=== PATIENT | female | born 1965 | race Caucasian/White ===

== ENCOUNTER 2022-02-05 00:26 | Inpatient (IN) | payer BC ==
[~2022-02-05] VITALS: Ht 172.7 cm; Wt 104.0 kg
[2022-02-05] MEDS ORDERED: adenosine 3mg/ml 2ml vial IV ONE (02:00)
[2022-02-05] MEDS ORDERED: etomidate 2mg/ml inj. ONE (02:00)
[2022-02-05 02:26] LABS: BASOPHILS # (AUTO) 0.1 X10'3 (0-0.2); BASOPHILS % (AUTO) 0.6 % (0-1); EOSINOPHILS # (AUTO) 0.2 X10'3 (0-0.9); EOSINOPHILS % (AUTO) 2.4 % (0-6); HEMATOCRIT 35.5 % (35.0-45.0); LYMPHOCYTES % (AUTO) 21.7 % (21-51); MEAN CORPUSCULAR HEMOGLOBIN 31.8 PG (27.0-31.0); MEAN CORPUSCULAR HGB CONC 33.8 g/dL (33.0-36.5); MEAN CORPUSCULAR VOLUME 94.1 FL (78-98); MEAN PLATELET VOLUME 7.2 FL (7.4-10.4); MONOCYTES # (AUTO) 0.8 X10'3 (0-0.9); MONOCYTES % (AUTO) 9.1 % (2-12); NEUTROPHILS # (AUTO) 6.1 X10'3 (1.8-7.7); NEUTROPHILS % (AUTO) 66.2 % (42-75); PLATELET COUNT 335 X10'3 (140-440); RED BLOOD COUNT 3.77 X10'6 (4.20-5.60); RED CELL DISTRIBUTION WIDTH 13.5 % (11.5-14.5); WHITE BLOOD COUNT 9.1 X10'3 (4.5-11.0)
[2022-02-05 02:30] LABS: MAGNESIUM 1.9 MG/DL (1.5-2.4); PHOSPHORUS 1.9 MG/DL (2.3-4.5)
[2022-02-05 03:34] LABS: ALANINE AMINOTRANSFERASE 24 U/L (12-78); ALBUMIN 3.1 G/DL (3.4-5.0); ALBUMIN/GLOBULIN RATIO 0.9 (1.1-1.5); ALKALINE PHOSPHATASE 78 IU/L (46-116); ANION GAP 7 (8-16); ASPARTATE AMINO TRANSFERASE 18 U/L (10-37); BILIRUBIN,TOTAL 0.2 MG/DL (0.1-1.0); BLOOD UREA NITROGEN 16 MG/DL (7-18); BUN/CREATININE RATIO 16.7 (6.6-38.0); CALCIUM 8.3 MG/DL (8.5-10.1); CHLORIDE 107 MMOL/L (99-107); CREATININE 0.96 MG/DL (0.40-0.90); GLUCOSE 138 MG/DL (70-104); POTASSIUM 3.3 MMOL/L (3.5-5.1); SODIUM 140 MMOL/L (135-145); TOTAL CARBON DIOXIDE 25.6 MMOL/L (24-32); TOTAL PROTEIN 6.5 G/DL (6.4-8.2); eGFR 60 ML/MIN
[2022-02-05] MEDS ORDERED: potassium phosphate inj 15 MMOL in normal saline 250ml IV soln 250 ML IV ONE (03:45)
[2022-02-05] MEDS ORDERED: potassium phosphate inj 30 MMOL in normal saline 250ml IV soln 250 ML IV ONE (03:45)
[2022-02-05] MEDS ORDERED: potassium phosphate inj 30 MMOL in normal saline 500ml IV soln 500 ML IV ONE (03:54)
[2022-02-05] MEDS ORDERED: FLEC100T35 PO (03:58)
[2022-02-05] MEDS ORDERED: LIOT5TAB10 PO (03:58)
[2022-02-05] MEDS ORDERED: ATOR20TA66 PO (03:58)
[2022-02-05] MEDS ORDERED: MONT10TA21 PO (03:58)
[2022-02-05] MEDS ORDERED: APIX5TAB3 PO (03:58)
[2022-02-05] MEDS ORDERED: LOSA25TA96 PO (03:58)
[2022-02-05] MEDS ORDERED: normal saline 1000ml 1,000 ML IV SCH (04:15)
[2022-02-05] MEDS ORDERED: magnesium Cl slow-release 64mg tablet PO PRN (04:15)
[2022-02-05] MEDS ORDERED: acetaminophen 325mg tablet PO PRN (04:15)
[2022-02-05] MEDS ORDERED: ondansetron/PF 4mg/2ml inj IV PRN (04:15)
[2022-02-05] MEDS ORDERED: HYDROcodone/acetaminophen 5mg/325mg tablet PO PRN (04:15)
[2022-02-05] MEDS ORDERED: potassium Cl 40MEQ/1/2NS 520ml 520 ML IV PRN (04:15)
[2022-02-05] MEDS ORDERED: magnesium 4gm in 100ml NS 100 ML IV PRN (04:15)
[2022-02-05] MEDS ORDERED: morphine 2 MG/ML inj. syringe IV PRN (04:15)
[2022-02-05] MEDS ORDERED: potassium Cl 20 mEq SR tablet PO PRN ×2 (04:15)
[2022-02-05] MEDS: K and/or MAG REPLACEMENT MC SCH ×2 (06:52→20:00)
[2022-02-05] MEDS: montelukast 10mg tablet PO SCH (07:16)
[2022-02-05] MEDS: apixaban 5mg tablet PO SCH ×2 (07:16→19:59)
[2022-02-05] MEDS: flecainide 50mg tablet PO SCH ×2 (07:16→19:59)
[2022-02-05] MEDS: atorvastatin 20mg tablet PO SCH (07:16)
[2022-02-05] MEDS: losartan 25mg tablet PO SCH (07:16)
[2022-02-05] MEDS ORDERED: heparin, porcine 5000 units/ml vial SQ SCH (08:00)
[2022-02-05 09:00] VITALS: BP 118/68
[2022-02-05] MEDS: acetaminophen 325mg tablet PO PRN ×2 (10:45→19:58)
[2022-02-05] MEDS ORDERED: levalbuterol 0.63mg/3ml nebule IH ONE (12:18)
--- NOTE | 2022-02-05 12:43 | NUR ---
sent to [facility]: [id number] Jennifer: Pt needs to take her thyroid medication. it is on her home med list. please order. thank you. Crystal PHILLIPS [id number]
[2022-02-05] MEDS: liothyronine sod 5mcg tablet PO SCH (13:16)
[2022-02-05 16:00] VITALS: BP 128/65
--- NOTE | 2022-02-05 17:40 | NUR ---
pt has walked around the unit several times independently and with spouse. very steady on her feet and walks at a brisk pace. no dizziness or sob noted. VSS.
[2022-02-05 18:00] VITALS: BP 127/65
--- NOTE | 2022-02-05 20:00 | NUR ---
Received pt. awake alert oriented x4 able to describe events leading up to admission. Pt. is involved in care. Peripheral SL intact. Monitor shows NSR. Pt. able walk around the unit without assistance.Pt. received Potassium and phos replacement in ER prior to arrival. Plan for repeat Potassium land Mag level in am pt teaching on electrolyte maintainence possible home tomorrow
[2022-02-05] MEDS ORDERED: temazepam 15mg capsule PO PRN (21:00)
[2022-02-05] MEDS: levalbuterol 0.63mg/3ml nebule IH SCH (21:16)
[2022-02-05 22:00] VITALS: BP 110/55
[2022-02-06 02:23] VITALS: BP 117/60
[2022-02-06] MEDS: levalbuterol 0.63mg/3ml nebule IH SCH ×2 (02:52→08:37)
[2022-02-06 06:53] LABS: BASOPHILS % (AUTO) 0.8 % (0-1); EOSINOPHILS # (AUTO) 0.2 X10'3 (0-0.9); EOSINOPHILS % (AUTO) 3.2 % (0-6); HEMATOCRIT 38.1 % (35.0-45.0); HEMOGLOBIN 12.9 g/dl (12.0-16.0); LYMPHOCYTES # (AUTO) 1.7 X10'3 (1.1-4.8); LYMPHOCYTES % (AUTO) 33.3 % (21-51); MEAN CORPUSCULAR HEMOGLOBIN 32.6 PG (27.0-31.0); MEAN CORPUSCULAR HGB CONC 33.8 g/dL (33.0-36.5); MEAN CORPUSCULAR VOLUME 96.7 FL (78-98); MEAN PLATELET VOLUME 6.9 FL (7.4-10.4); MONOCYTES # (AUTO) 0.4 X10'3 (0-0.9); NEUTROPHILS # (AUTO) 2.7 X10'3 (1.8-7.7); NEUTROPHILS % (AUTO) 54.7 % (42-75); PLATELET COUNT 305 X10'3 (140-440); RED BLOOD COUNT 3.94 X10'6 (4.20-5.60)
[2022-02-06 07:00] VITALS: BP 122/65
[2022-02-06] MEDS: K and/or MAG REPLACEMENT MC SCH (08:00)
[2022-02-06 08:04] LABS: ALANINE AMINOTRANSFERASE 20 U/L (12-78); ALBUMIN 3.3 G/DL (3.4-5.0); ALBUMIN/GLOBULIN RATIO 0.9 (1.1-1.5); ALKALINE PHOSPHATASE 82 IU/L (46-116); ANION GAP 8 (8-16); ASPARTATE AMINO TRANSFERASE 25 U/L (10-37); BILIRUBIN,TOTAL 0.4 MG/DL (0.1-1.0); BLOOD UREA NITROGEN 9 MG/DL (7-18); BUN/CREATININE RATIO 10.6 (6.6-38.0); CALCIUM 9.2 MG/DL (8.5-10.1); CHLORIDE 108 MMOL/L (99-107); CREATININE 0.85 MG/DL (0.40-0.90); GLUCOSE 100 MG/DL (70-104); SODIUM 141 MMOL/L (135-145); TOTAL CARBON DIOXIDE 24.8 MMOL/L (24-32); TOTAL PROTEIN 7.1 G/DL (6.4-8.2); eGFR 69 ML/MIN
[2022-02-06 09:11] VITALS: BP_SYST 122
[2022-02-06] MEDS: losartan 25mg tablet PO SCH (09:11)
[2022-02-06] MEDS: atorvastatin 20mg tablet PO SCH (09:11)
[2022-02-06] MEDS: liothyronine sod 5mcg tablet PO SCH (09:12)
[2022-02-06] MEDS: flecainide 50mg tablet PO SCH (09:12)
[2022-02-06] MEDS: montelukast 10mg tablet PO SCH (09:12)
[2022-02-06] MEDS: apixaban 5mg tablet PO SCH (09:12)
[2022-02-06] MEDS ORDERED: LEVA15HF4 INH (13:06)
== END 2022-02-06 14:19 | disposition home or self-care (01) | DRG 310 ==
LOC: ER 00:27 → ED HOLD 04:16 → PCU 3S 08:51
PROVIDERS: ADMIT Internal Medicine; ATTEND Internal Medicine
PROC: 5A2204Z Restoration of Cardiac Rhythm, Single (ICD-10-PCS; principal; 2022-02-05)
DX: I47.1 Supraventricular tachycardia (principal); E06.3 Autoimmune thyroiditis; F10.90 Alcohol use, unspecified, uncomplicated; E83.39 Other disorders of phosphorus metabolism; E87.6 Hypokalemia; G47.00 Insomnia, unspecified; I48.91 Unspecified atrial fibrillation; Z79.01 Long term (current) use of anticoagulants; Z86.16 Personal history of COVID-19; Z87.09 Personal history of other diseases of the respiratory system; Z79.899 Other long term (current) drug therapy
CPT/HCPCS: 36415; 80053; 83735; 84100; 84443; 85025; 87081; 92960; 93005; 94640; 94760; 99291; G0378; J0153; J3490; J7030; J7040; J7614

== ENCOUNTER 2022-08-31 18:53 | Emergency (ER) | payer BC ==
[~2022-08-31] VITALS: Ht 172.7 cm; Wt 109.1 kg
[~2022-08-31 18:53] MED LIST: APIX5TAB3 PO; ATOR20TA66 PO; FLEC100T35 PO; LEVA15HF4 INH; LIOT5TAB10 PO; LOSA25TA96 PO; MONT-47 PO
[2022-08-31] MEDS ORDERED: adenosine 3mg/ml 2ml vial IV STA (19:16)
--- NOTE | 2022-08-31 19:20 | NUR ---
ADENOSINE 12MG IV RAPID IV PUSH GIVEN, RATE REMAINS AT 198, NO CHANGE, PT IS RESTING QUIETLY ON GURNEY, RESP EVEN AND UNLABORED, SKIN P/W/D,
[2022-08-31 19:26] LABS: BASOPHILS # (AUTO) 0.1 X10'3 (0-0.2); EOSINOPHILS # (AUTO) 0.2 X10'3 (0-0.9); EOSINOPHILS % (AUTO) 3.4 % (0-6); HEMATOCRIT 39.7 % (35.0-45.0); HEMOGLOBIN 13.8 g/dl (12.0-16.0); LYMPHOCYTES # (AUTO) 2.5 X10'3 (1.1-4.8); LYMPHOCYTES % (AUTO) 40.5 % (21-51); MEAN CORPUSCULAR HEMOGLOBIN 33.1 PG (27.0-31.0); MEAN CORPUSCULAR HGB CONC 34.8 g/dL (33.0-36.5); MEAN PLATELET VOLUME 7.1 FL (7.4-10.4); MONOCYTES # (AUTO) 0.7 X10'3 (0-0.9); MONOCYTES % (AUTO) 10.7 % (2-12); NEUTROPHILS # (AUTO) 2.7 X10'3 (1.8-7.7); NEUTROPHILS % (AUTO) 44.4 % (42-75); PLATELET COUNT 363 X10'3 (140-440); RED BLOOD COUNT 4.18 X10'6 (4.20-5.60); RED CELL DISTRIBUTION WIDTH 13.6 % (11.5-14.5); WHITE BLOOD COUNT 6.2 X10'3 (4.5-11.0)
[2022-08-31] MEDS ORDERED: metoprolol tartrate 1mg/ml inj IV ONE (19:35)
--- NOTE | 2022-08-31 19:46 | NUR ---
PT RECEIVED LOPRESSOR, HR 105, DR RICHEY AT BEDSIDE TO EVALUATE
[2022-08-31 19:47] LABS: ALANINE AMINOTRANSFERASE 31 U/L (12-78); ALKALINE PHOSPHATASE 73 IU/L (46-116); ANION GAP 12 (8-16); ASPARTATE AMINO TRANSFERASE 20 U/L (10-37); BILIRUBIN,TOTAL 0.5 MG/DL (0.1-1.0); BLOOD UREA NITROGEN 11 MG/DL (7-18); BUN/CREATININE RATIO 11.5 (10.0-20.0); CALCIUM 9.5 MG/DL (8.5-10.1); CHLORIDE 103 MMOL/L (99-107); CREATININE 0.96 MG/DL (0.40-0.90); GLUCOSE 138 MG/DL (70-104); POTASSIUM 3.6 MMOL/L (3.5-5.1); SODIUM 140 MMOL/L (135-145); TOTAL CARBON DIOXIDE 24.8 MMOL/L (24-32); TOTAL PROTEIN 7.9 G/DL (6.4-8.2); eGFR 60 ML/MIN
[2022-08-31] MEDS ORDERED: fentaNYL/PF 50MCG/1 ML 2ML syringe IV ONE (21:05)
[2022-08-31] MEDS ORDERED: propofol 10mg/ml 20ml vial IV ONE (21:05)
--- NOTE | 2022-08-31 21:13 | NUR ---
PT BEING SET UP FOR MODERATE SEDATION
[2022-08-31 22:38] VITALS: BP 105/61
== END 2022-08-31 22:51 | disposition home or self-care (01) ==
LOC: ER 18:53
DX: I48.92 Unspecified atrial flutter (principal); R05.9 Cough, unspecified; E03.9 Hypothyroidism, unspecified
CPT/HCPCS: 36415; 80053; 83880; 85025; 92960; 93005; 96374; 96375; 99285; J0153; J3010; J3490; A4620